=== PATIENT | female | born 1965 | race Caucasian/White ===

== ENCOUNTER 2016-12-04 13:40 | Emergency (ER) | payer BC ==
[2016-12-04 13:48] VITALS: BP 134/77
--- NOTE | 2016-12-04 13:50 | UC ---
Upper Extremity HPI - HPI Summary HPI Summary: Last night was chasing dog and fell into tree, catching self with R wrist. Since then has had pain and swelling, mainly with R wrist use and twisting motion. No pain in shoulder or elbow, denies prior surgeries in R wrist. - History of Current Complaint Stated Complaint: WRIST INJURY Time Seen by Provider: 12/04/16 13:43 Hx Obtained From: Patient ?: No Onset/Duration: Sudden Onset Severity Initially: Mild Severity Currently: Moderate Character: Dull Aggravating Factor(s): Movement, Internal/External Rotation Alleviating Factor(s): Rest Associated Signs And Symptoms: Positive: Swelling Related History: Dominant Hand Right - Allergies/Home Medications Allergies/Adverse Reactions: Allergies Allergy/AdvReac Type Severity Reaction Status Date / Time Oxycodone Allergy Severe Rash Verified 12/04/16 13:48 CT DYE Allergy Severe Wheezing Uncoded 12/04/16 13:48 PMH/Surg Hx/FS Hx/Imm Hx Cardiovascular History: Hypertension, Bleeding Disorders - factor V Other Cardiovascular History: Long QT syndrome - Surgical History Surgical History: Yes Surgery Procedure, Year, and Place: HYSTERECTOMY 2009, TONSILLECTOMY, LEFT LEG HEMATOMA REMOVED, OVARIAN ABLATION - Family History Known Family History: Positive: Hypertension, Blood Disorder - DVTs - Social History Lives: With Family Alcohol Use: Occasionally Substance Use Type: None Review of Systems Constitutional: Negative Skin: Negative Eyes: Negative ENT: Negative Respiratory: Negative Cardiovascular: Negative Gastrointestinal: Negative Genitourinary: Negative Motor: Negative Neurovascular: Negative Musculoskeletal: Arthralgia, Decreased ROM Neurological: Negative Psychological: Negative All Other Systems Reviewed And Are Negative: Yes Physical Exam Triage Information Reviewed: Yes Appearance: Well-Appearing, No Pain Distress, Obese Vital Signs Reviewed: Yes Eye Exam: Normal, Other - PERRL Eyes: Positive: Conjunctiva Clear ENT Exam: Normal ENT: Positive: Normal ENT inspection, Hearing grossly normal, Pharynx normal, TMs normal Dental Exam: Normal Neck exam: Normal Neck: Positive: Supple, Nontender, No Lymphadenopathy Respiratory Exam: Normal Respiratory: Positive: Chest non-tender, Lungs clear, Normal breath sounds, No respiratory distress, No accessory muscle use Cardiovascular Exam: Normal Cardiovascular: Positive: RRR, No Murmur Musculoskeletal Exam: Other - No snuff box or radial tenderness in R wrist Musculoskeletal: Positive: Strength Limited @ - R wrist, ROM Limited @ - R wrist Neurological Exam: Normal Neurological: Positive: Alert Psychological Exam: Normal Skin Exam: Normal Upper Extremity Course/Dx - Differential Dx/Diagnosis Provider Diagnoses: Suspect closed, nondisplaced fracture of R pisiform and/or triquetral Discharge - Discharge Plan Condition: Stable Disposition: INTERMEDIATE CARE FACILITY Patient Education Materials: Wrist Fracture in Adults (ED) Referrals: Lisbeth Ho MD [Medical Doctor] - 1 Week Additional Instructions: Use ice and elevation to help with pain; you can also take naproxen or ibuprofen as needed. Though your x-ray was read as normal, I suspect you still have a bony injury on that side of your wrist because of your pain and swelling. Keep the splint on all the time until seen by the orthopedist. You may remove it for bathing ONLY if you have a shower chair or other safe way to bathe seated.
--- NOTE | 2016-12-04 14:09 | RAD ---
INDICATION: Right wrist injury. TECHNIQUE: 3 views of the right wrist were obtained. FINDINGS: The bones are in normal alignment. No fracture is seen. Joint spaces appear maintained. IMPRESSION: NO EVIDENCE FOR FRACTURE.
== END 2016-12-04 14:28 ==
LOC: UCEAST 13:40
DX: S62.164A Nondisplaced fracture of pisiform, right wrist, initial encounter for closed fracture (principal); S62.114A Nondisplaced fracture of triquetrum [cuneiform] bone, right wrist, initial encounter for closed fracture; W01.0XXA Fall on same level from slipping, tripping and stumbling without subsequent striking against object, initial encounter; Z88.5 Allergy status to narcotic agent; Z91.041 Radiographic dye allergy status; I10 Essential (primary) hypertension; D68.51 Activated protein C resistance; I45.81 Long QT syndrome
CPT/HCPCS: 99212; G0463

== ENCOUNTER 2017-07-14 09:43 | Emergency (ER) | payer BC ==
[2017-07-14 09:51] VITALS: BP 134/82
--- NOTE | 2017-07-14 10:19 | UC ---
FLU HPI - HPI Summary HPI Summary: Pt presents with body aches, fatigue, and dry cough for the last 2 days. She tells me that last weekend she was at a wedding with her family - yesterday her sister called her told her that she has the flu and to be checked. Pt has not been taking anything OTC. She tells me that she has a history of long QT and is always cautious when taking medications. Denies fever, chills, SOB, chest pain, abdominal pain, n/v/d/c. - History of Current Complaint Chief Complaint: UCRespiratory Stated Complaint: COUGH, AND CHEST CONGESTION Time Seen by Provider: 07/14/17 10:17 Hx Obtained From: Patient Onset/Duration: Gradual Onset Severity Currently: Mild Severity Initially: Mild Pain Intensity: 2 Pain Scale Used: 0-10 Numeric - Allergy/Home Medications Allergies/Adverse Reactions: Allergies Allergy/AdvReac Type Severity Reaction Status Date / Time Iodine and Iodide Containing Allergy Hives Verified 07/14/17 09:47 Produc oxycodone Allergy Rash Verified 07/14/17 09:47 PMH/Surg Hx/FS Hx/Imm Hx - Additional Past Medical History Additional PMH: Long QT Factor 5 - Surgical History Surgical History: Yes Surgery Procedure, Year, and Place: HYSTERECTOMY 2009,. TONSILLECTOMY,. LEFT LEG HEMATOMA REMOVED,. OVARIAN ABLATION, - Family History Known Family History: Positive: Hypertension, Blood Disorder - DVTs - Social History Occupation: Employed Full-time Lives: With Family Alcohol Use: Occasionally Substance Use Type: None Smoking Status (MU): Never Smoked Tobacco Review of Systems Constitutional: Fatigue, Other - Body aches Skin: Negative Eyes: Negative ENT: Negative Respiratory: Cough Cardiovascular: Negative Gastrointestinal: Negative Neurovascular: Negative Neurological: Negative Psychological: Negative All Other Systems Reviewed And Are Negative: Yes Physical Exam - Summary Physical Exam Summary: GENERAL: NAD. WDWN. No pain distress. SKIN: No rashes, sores, ulcers, masses, lesions. HEENT: Head: AT/NC Eyes: Conjunctiva clear without inflammation or discharge. Ears: Hearing grossly normal. TMs intact, no bulging, erythema, or edema. Nose: Nasal mucosa pink and moist. NTTP maxillary and frontal sinus. Throat: Posterior oropharynx without exudates, erythema, or tonsillar enlargement. Uvula midline. NECK: Supple. Nontender. No lymphadenopathy. CHEST: CTAB. No r/r/w. No accessory muscle use. Breathing comfortably and in no distress. CV: RRR. Without m/r/g. Pulses intact. Brisk cap refill. NEURO: Alert. CN II-XII grossly intact. PSYCH: Age appropriate behavior. Triage Information Reviewed: Yes Vital Signs: Initial Vital Signs Temp 96.7 F 07/14/17 09:49 Pulse 67 07/14/17 09:49 Resp 16 07/14/17 09:49 BP 134/82 07/14/17 09:49 Pulse Ox 100 07/14/17 09:49 Flu Course/Dx - Course Course Of Treatment: POC flu negative. Pt is requesting antibiotic as she says her URI always "goes into her chest" and she doesn't want it to get worse. - Differential Dx/Diagnosis Provider Diagnoses: Bronchitis Discharge - Sign-Out/Discharge Documenting (check all that apply): Discharge - Discharge Plan Condition: Stable Disposition: HOME Prescriptions: Amoxicillin PO (*) [Amoxicillin 500 MG CAP*] 500 mg PO Q12H #20 cap Patient Education Materials: Acute Bronchitis (ED) Referrals: Feliciano Moran MD [Primary Care Provider] - Additional Instructions: If you develop a fever, shortness of breath, chest pain, new or worsening symptoms - please call your PCP or go to the ED. - Billing Disposition and Condition Condition: STABLE Disposition: HOME
== END 2017-07-14 10:33 | disposition home or self-care (01) ==
LOC: UCEAST 09:43
DX: J40 Bronchitis, not specified as acute or chronic (principal); Z88.5 Allergy status to narcotic agent
CPT/HCPCS: 87502; 99212; G0463

== ENCOUNTER 2017-11-08 17:49 | Emergency (ER) | payer BC ==
--- NOTE | 2017-11-08 19:09 | ED ---
Lower Extremity - HPI Summary HPI Summary: This is scribe Jayyev Benedict documenting for attending Dr. Rodrigo Fox MD. A 52 y/o female presents to ED c/o right calf pain now radiating to behind the knee. Additionally c/o slight swelling in foot and toe area. Currently, besides the chief complaint, she is otherwise feeling fine. According to the patient, for the past four days she has been experiencing calf pain reaching 4/10 in severity. Today the pain is radiating to behind the knee and some pain in the front. It has become worse to the point where using the stairs and straightening out her leg is difficult. She denies any previous injury. Additionally denies any CP, SOB and abdominal pain, however, has been running a low-grade fever. PMHx of hysterectomy, HBP, Long QT. FHx of Factor V. Current medications are for her HBP and Long QT. Pt will be leaving for [place] on November 14 2017. - History of Current Complaint Chief Complaint: EDExtremityLower Stated Complaint: LEG PAIN Time Seen by Provider: 11/08/17 18:59 Hx Obtained From: Patient Mechanism Of Injury: Unknown Onset/Duration: Days - 4 days Severity Initially: Moderate Severity Currently: Moderate Pain Intensity: 4 Pain Scale Used: 0-10 Numeric Timing: Constant Location: Is Diffuse - Right calf that radiates to behind the knee Associated Signs And Symptoms: Positive: Swelling, Fever - Low-grade. Negative : Abdominal Pain Aggravating Factor(s): Movement - Movement up the stairs Alleviating Factor(s): Nothing Able to Bear Weight: Yes - Allergies/Home Medications Allergies/Adverse Reactions: Allergies Allergy/AdvReac Type Severity Reaction Status Date / Time Iodine and Iodide Containing Allergy Hives Verified 11/08/17 17:59 Produc oxycodone Allergy Rash Verified 11/08/17 17:59 PMH/Surg Hx/FS Hx/Imm Hx Endocrine/Hematology History: Denies: Hx Diabetes Cardiovascular History: Reports: Hx Hypertension Denies: Hx Pacemaker/ICD Respiratory History: Denies: Hx Asthma History: Denies: Hx Renal Disease Musculoskeletal History: Denies: Hx Scoliosis Sensory History: Denies: Hx Hearing Aid Neurological History: Denies: Hx Headaches, Other Neuro Impairments/Disorders Psychiatric History: Reports: Hx Panic Disorder - Cancer History Hx Chemotherapy: No Hx Radiation Therapy: No - Surgical History Surgery Procedure, Year, and Place: HYSTERECTOMY 2009,. TONSILLECTOMY,. LEFT LEG HEMATOMA REMOVED,. OVARIAN ABLATION, Infectious Disease History: No Infectious Disease History: Denies: Traveled Outside the [place] in Last 30 Days - Family History Known Family History: Positive: Hypertension, Blood Disorder - DVTs - Social History Alcohol Use: Occasionally Substance Use Type: Reports: None Smoking Status (MU): Never Smoked Tobacco Review of Systems Positive: Fever - Low-grade Negative: Chest Pain Negative: Shortness Of Breath Negative: Abdominal Pain Positive: Other - POSITIVE: right calf pain radiating to behind the knee Positive: Other - POSITIVE: swelling in toe and foot area. All Other Systems Reviewed And Are Negative: Yes Physical Exam - Summary Physical Exam Summary: Appearance: Well-appearing, Well-nourished, lying in bed comfortably Skin: Warm, dry, no obvious rash. Mild swelling in foot and ankle. No warmth, no erythema, no tenderness. Eyes: sclera anicteric, no conjunctival pallor ENT: mucous membranes moist, pharynx appears normal Neck: Supple, nontender Respiratory: Clear to auscultation, no signs of respiratory distress Cardiovascular: Normal S1, S2. No murmurs. Normal distal pulses in tibial and radial bilaterally. Abdomen: Soft, nontender, normal active bowel sounds present Musculoskeletal: Normal, Strength/ROM Intact. No calf tenderness. No tenderness in the popliteal fossa. Neurological: A&Ox3, awake and alert, mentation is normal, speech is fluent and appropriate Psychiatric: affect is normal, does not appear anxious or depressed Triage Information Reviewed: Yes Vital Signs On Initial Exam: Initial Vitals Temp Pulse Resp BP Pulse Ox 100.1 F 79 20 153/86 100 11/08/17 17:55 11/08/17 17:55 11/08/17 17:55 11/08/17 17:55 11/08/17 17:55 Vital Signs Reviewed: Yes Diagnostics - Vital Signs Vital Signs Temp Pulse Resp BP Pulse Ox 11/08/17 17:55 100.1 F 79 20 153/86 100 - Laboratory Lab Statement: Any lab studies that have been ordered have been reviewed, and results considered in the medical decision making process. - Ultrasound No standard instances Ultrasound Interpretation Completed By: ED Physician - VENOUS DOPPLER: Negative. Re-Evaluation - Re-Evaluation First Eval Re-Evaluation Time: 20:15 Comment: Negative US. Discussed discharge with patient. Lower Extremity Course/Dx - Diagnoses Differential Diagnosis/HQI/PQRI: Positive: DVT, Infection, Strain, Tenosynovitis Provider Diagnoses: Leg pain Discharge - Sign-Out/Discharge Documenting (check all that apply): Patient Departure - DISCHARGE - Discharge Plan Condition: Good Disposition: HOME Patient Education Materials: Leg Pain (ED) Referrals: Feliciano Moran MD [Primary Care Provider] - Additional Instructions: If your symptoms have resolved (or nearly so) by Sunday, I think you should be good to go on your trip. If your pain has not improved at all, you should have a repeat ultrasound test before you leave. Occasionally a small clot is missed on the first US. - Billing Disposition and Condition Condition: GOOD Disposition: Home
--- NOTE | 2017-11-08 19:59 | RAD ---
INDICATION: Right lower extremity swelling. COMPARISON: There are no prior studies available for comparison. TECHNIQUE: Multiple real-time, color flow and Doppler tracings of the right lower extremity were obtained. FINDINGS: The common femoral, femoral, profunda femoral and popliteal veins all demonstrate normal compressibility, augmentation with compression and phasic response with respiration. The posterior tibial and peroneal veins demonstrate normal compressibility and augmentation with compression. IMPRESSION: NO EVIDENCE FOR DEEP VENOUS THROMBOSIS.
[2017-11-08 21:11] VITALS: BP 146/78
== END 2017-11-08 20:35 | disposition home or self-care (01) ==
LOC: ED 17:49
DX: M79.604 Pain in right leg (principal); I10 Essential (primary) hypertension
CPT/HCPCS: 99282

== ENCOUNTER 2018-06-17 19:05 | Emergency (ER) | payer BC ==
[2018-06-17 19:30] VITALS: BP 151/94
--- NOTE | 2018-06-17 20:29 | UC ---
Respiratory Complaint HPI - HPI Summary HPI Summary: 53-year-old woman who 53-year-old woman comes in with a chief complaint of cough chest congestion and wheezing. It has been going on for about 4 days. She started with a fever yesterday. Been having sputum production. In the past patient's had bronchitis and she has bronchospasm associated with it. She has QT prolongation syndrome and therefore she has to avoid albuterol. She does have some rhinorrhea also. Laying down seems to make the symptoms worse. - History of Current Complaint Chief Complaint: UCRespiratory Stated Complaint: ASTHMA SYMPTOMS Time Seen by Provider: 06/17/18 20:20 Pain Intensity: 0 - Allergies/Home Medications Allergies/Adverse Reactions: Allergies Allergy/AdvReac Type Severity Reaction Status Date / Time Iodine and Iodide Containing Allergy Hives Verified 06/17/18 19:30 Produc oxycodone Allergy Rash Verified 06/17/18 19:30 Home Medications: Home Medications Guaifenesin/Dextromethorphan [Guaifenesin Dm 400-20 mg Tab] 1 tab PO Q6HR [History Confirmed 06/17/18] PMH/Surg Hx/FS Hx/Imm Hx Previously Healthy: Yes - PROLONGED QT Cardiovascular History: Hypertension - Surgical History Surgical History: Yes Surgery Procedure, Year, and Place: HYSTERECTOMY 2009,. TONSILLECTOMY,. LEFT LEG HEMATOMA REMOVED,. OVARIAN ABLATION, - Family History Known Family History: Positive: Hypertension, Blood Disorder - DVTs - Social History Alcohol Use: Occasionally Substance Use Type: None Smoking Status (MU): Never Smoked Tobacco Review of Systems All Other Systems Reviewed And Are Negative: Yes Constitutional: Positive: Negative Skin: Positive: Negative Eyes: Positive: Negative ENT: Positive: Nasal Discharge, Sinus Congestion Respiratory: Positive: Shortness Of Breath, Cough, Other - WHEEZING Cardiovascular: Positive: Negative Gastrointestinal: Positive: Negative Motor: Positive: Negative Neurovascular: Positive: Negative Musculoskeletal: Positive: Negative Neurological: Positive: Negative Psychological: Positive: Negative Is Patient Immunocompromised?: No Physical Exam Triage Information Reviewed: Yes Appearance: No Pain Distress, Well-Nourished, Ill-Appearing - MILD Vital Signs: Initial Vital Signs Temp 98.9 F 06/17/18 19:25 Pulse 82 06/17/18 19:25 Resp 16 06/17/18 19:25 BP 151/94 06/17/18 19:25 Pulse Ox 96 06/17/18 19:25 Vital Signs Reviewed: Yes Eye Exam: Normal Eyes: Positive: Conjunctiva Clear ENT: Positive: Pharyngeal erythema, Nasal congestion, Nasal drainage, TMs normal Neck exam: Normal Neck: Positive: Supple Respiratory: Positive: No respiratory distress, Rhonchi, Wheezing Cardiovascular: Positive: RRR Neurological Exam: Normal Neurological: Positive: Alert Psychological Exam: Normal Psychological: Positive: Normal Response To Family, Age Appropriate Behavior Skin Exam: Normal Respiratory Course/Dx - Course Course Of Treatment: THE PATIENT WISHES TO BE ON ANTIBIOTICS AT THIS TIME. - Differential Dx/Diagnosis Provider Diagnosis: Bronchitis with bronchospasm Discharge - Sign-Out/Discharge Documenting (check all that apply): Patient Departure All imaging exams completed and their final reports reviewed: No Studies - Discharge Plan Condition: Stable Disposition: HOME Prescriptions: Cefdinir [Cefdinir 300 MG CAP] 300 mg PO BID #20 cap predniSONE TAB* [Deltasone 20 MG TAB*] 40 mg PO DAILY #10 tab Patient Education Materials: Acute Bronchitis (ED), Bronchospasm (ED) Referrals: Feliciano Moran MD [Primary Care Provider] - Additional Instructions: FOLLOW UP WITH YOUR DOCTOR IF NOT COMPLETELY IMPROVED. GET RECHECKED FOR ANY WORSENING OF YOUR CONDITION OR QUESTIONS OR CONCERNS. - Billing Disposition and Condition Condition: STABLE Disposition: Home
== END 2018-06-17 20:40 | disposition home or self-care (01) ==
LOC: UCEAST 19:05
DX: J20.9 Acute bronchitis, unspecified (principal); I45.81 Long QT syndrome; Z88.5 Allergy status to narcotic agent; I10 Essential (primary) hypertension
CPT/HCPCS: 99212; G0463

== ENCOUNTER 2019-01-07 20:10 | Emergency (ER) | payer BC ==
--- NOTE | 2019-01-08 00:01 | ED ---
Hypertension - HPI Summary HPI Summary: 53 year old F presenting [place] [facility] by family members complains of hypertension since this afternoon. Patient states that she checked her blood pressure twice before coming to the ED which were 153/90 and 161/90. Patient states she has chest fluttering, and now has a frontal headache. Denies tingliness/numbness in her hands or feet. Symptoms aggravated by nothing. Symptoms alleviated by nothing. Patient states she was seen by her primary care provider today for annual physical exam at which she received the influenza vaccination. Patient states she has never had a reaction to the influenza vaccination. 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 Patient denies associated shortness of breath, cough, n/v/d with these episodes of dizziness. Patient states she doesn't have dizziness now. Patient has never had these episodes of dizziness before. Patient states that years ago, patient had Lyme disease and Bailon's Palsy, and she gets occasional left-sided facial numbness. Patient states that today, she had left-sided facial numbness which has now resolved. PMHX: long QT. Patient states she was recently put on hydrochlorizide 1 month ago to reduce the swelling in her lower extremities. Has cardiac Fhx. Patient states she drinks wine occasionally but none today. Denies drugs, smoking. - History of Current Complaint Chief Complaint: EDHypertension Stated Complaint: HIGH BLOOD PRESSURE PER PT Time Seen by Provider: 01/07/19 23:48 Hx Obtained From: Patient Onset/Duration: Started Hours Ago, Still Present Timing: Constant Aggravating Factor(s): Nothing Alleviating Factor(s): Nothing - Allergies/Home Medications Allergies/Adverse Reactions: Allergies Allergy/AdvReac Type Severity Reaction Status Date / Time Iodine and Iodide Containing Allergy Hives Verified 06/17/18 19:30 Produc oxycodone Allergy Rash Verified 01/07/19 23:47 Home Medications: Home Medications Metoprolol Succinate 25 mg PO BEDTIME 01/07/19 [History Confirmed 01/07/19] PMH/Surg Hx/FS Hx/Imm Hx Endocrine/Hematology History: Denies: Hx Diabetes Cardiovascular History: Reports: Hx Hypertension Denies: Hx Pacemaker/ICD Respiratory History: Reports: Hx Asthma - one episode History: Denies: Hx Renal Disease Musculoskeletal History: Denies: Hx Scoliosis Sensory History: Reports: Hx Contacts or Glasses Denies: Hx Hearing Aid Opthamlomology History: Reports: Hx Contacts or Glasses Neurological History: Reports: Other Neuro Impairments/Disorders - Lyme disease and Bailon's Palsy Denies: Hx Headaches Psychiatric History: Denies: Hx Panic Disorder - Cancer History Hx Chemotherapy: No Hx Radiation Therapy: No - Surgical History Surgery Procedure, Year, and Place: HYSTERECTOMY 2009,. TONSILLECTOMY,. LEFT LEG HEMATOMA REMOVED,. OVARIAN ABLATION, Infectious Disease History: No Infectious Disease History: Denies: Traveled Outside the [place] in Last 30 Days - Family History Known Family History: Positive: Cardiac Disease, Hypertension, Blood Disorder - DVTs Family History: PACEMAKER - Social History Alcohol Use: Occasionally Hx Substance Use: No Substance Use Type: Reports: None Hx Tobacco Use: No Smoking Status (MU): Never Smoked Tobacco Review of Systems - ROS Summary Review of Systems Summary: Home Medications Medication Instructions Recorded Confirmed Type Aspirin TAB* [Aspirin 325 MG TAB*] 325 mg PO DAILY 06/02/13 01/07/19 History Ibuprofen TAB* [Advil TAB*] 400 mg PO Q6H PRN 06/02/13 01/07/19 History Lisinopril TAB* [Prinivil TAB 5 5 mg PO DAILY 06/02/13 01/07/19 History MG*] cloNIDine TAB* [Catapres 0.1 MG 0.1 mg PO DAILY 06/02/13 01/07/19 History TAB*] Cyclobenzaprine TAB* [Flexeril 10 10 mg PO TID PRN 11/08/17 01/07/19 History MG TAB*] Metoprolol Succinate XL TAB* 50 mg PO QAM 11/08/17 01/07/19 History [Toprol XL TAB*] Guaifenesin/Dextromethorphan 1 tab PO Q6HR 06/17/18 01/07/19 History [Guaifenesin Dm 400-20 mg Tab] Metoprolol Succinate 25 mg PO BEDTIME 01/07/19 01/07/19 History Positive: Other - hypertension, chest fluttering Negative: Shortness Of Breath, Cough Negative: Vomiting, Diarrhea, Nausea Neurological: Negative - tingliness/numbness in her hands or feet, Other - Dizziness Positive: Headache, Numbness - left-sided facial All Other Systems Reviewed And Are Negative: Yes Physical Exam - Summary Physical Exam Summary: General: Morbidly obese FEMALE who is mildly anxious-appearing HEENT: Normocephalic, Atraumatic. Eyes: Conjuctiva normal, PERRL. Ears: TMs within normal limits. Nares: (-) discharge, (-) erythema. Oropharynx: Clear, mucous membranes moist, (-) exudates. Neck: Soft, FROM, (-) lymphadenopathy, (-) thyromegaly, (-) JVD. Cardiovascular: Normal sinus rhythm, (-) murmur. Lungs: Clear to auscultation bilaterally (-) wheezes, (-) rales, (-) rhonchi. Abdomen: Soft, non-tender, non-distended, (-) organomegaly, normal bowel sounds. Back: (-) CVA tenderness Extremities: Trace edema in lower extremities Skin: Warm, dry, (-) rash. Neuro: Alert and oriented x3, no focal deficits. Psychiatric: Mood normal, affect normal. GCS: 15 Triage Information Reviewed: Yes Vital Signs On Initial Exam: Initial Vitals Temp Pulse Resp BP Pulse Ox 96.9 F 67 18 184/91 98 01/07/19 20:12 01/07/19 20:12 01/07/19 20:12 01/07/19 20:12 01/07/19 20:12 Vital Signs Reviewed: Yes Diagnostics - Vital Signs Vital Signs Temp Pulse Resp BP Pulse Ox 01/07/19 22:15 97.9 F 74 18 159/99 98 01/07/19 20:12 96.9 F 67 18 184/91 98 - Laboratory Result Diagrams: 01/08/19 00:13 01/08/19 00:13 Lab Statement: Any lab studies that have been ordered have been reviewed, and results considered in the medical decision making process. - CT Brain CT Interpretation Completed By: Radiologist Summary of CT Findings: No acute intracranial findings. ED physician has reviewed this report. - EKG 22:19 Cardiac Rate: NL - 68 BPM EKG Rhythm: Sinus Rhythm Summary of EKG Findings: EKG at 22:19 reveals normal sinus rhythm with rate of 68 BPM, no acute changes, no ischemic changes. This EKG was reviewed and interpreted by Dr. Perez. Re-Evaluation - Re-Evaluation First Eval Re-Evaluation Time: 01:51 Change: Improved Comment: I have discussed results with the patient and her symptoms have resolved. Discussed symptoms that warrant immediate return to ED. Hypertension Course/Dx - Course Course Of Treatment: 53 year old F presenting to [facility] accompanied by family members complains of hypertension since this afternoon. Patient states that she checked her blood pressure twice before coming to the ED which were 153/90 and 161/90. Patient states she has chest fluttering, and now has a frontal headache. Denies tingliness/numbness in her hands or feet. Symptoms aggravated by nothing. Symptoms alleviated by nothing. Patient states she was seen by her primary care provider today for annual physical exam at which she received the influenza vaccination. Patient states she has never had a reaction to the influenza vaccination. 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 Patient denies associated shortness of breath, cough, n/v/d with these episodes of dizziness. Patient states she doesn't have dizziness now. Patient has never had these episodes of dizziness before. Patient states that years ago, patient had Lyme disease and Bailon's Palsy, and she gets occasional left-sided facial numbness. Patient states that today, she had left-sided facial numbness which has now resolved. PMHX: long QT. Patient states she was recently put on hydrochlorizide 1 month ago to reduce the swelling in her lower extremities. Has cardiac Fhx. Patient states she drinks wine occasionally but none today. Denies drugs, smoking. Physical exam findings: a morbidly obese female who is mildly anxious appearing and has trace edema in lower extremities. EKG at 22: 19 reveals normal sinus rhythm with rate of 68 BPM, no acute changes, no ischemic changes. This EKG was reviewed and interpreted by Dr. Perez. CT Brain shows, per radiologist: No acute intracranial findings. Bloodwork results with no significant abnormalities except for MCH 32, chloride 100, BUN/ creatinine 26.3, glucose 114, AST 59, ALT 123. In the ED course, the patient took her evening dose of medications. The patient feels better and would like to go home. Patient will be discharged home with follow up her primary care provider. Patient was instructed to return to Emergency Department for new or worsening symptoms. Patient understands and is agreeable to this plan. - Diagnoses Provider Diagnoses: Dizziness, Hypertension Discharge ED - Sign-Out/Discharge Documenting (check all that apply): Patient Departure - Discharge Patient Received Moderate/Deep Sedation with Procedure: No - Discharge Plan Condition: Stable Disposition: HOME Patient Education Materials: Hypertension (ED), Dizziness (ED) Referrals: Feliciano Moran MD [Primary Care Provider] - 3 Days Additional Instructions: Please follow up with your primary care physician within 3 days. Please return to Emergency Department for any new or worsening symptoms. - Billing Disposition and Condition Condition: STABLE Disposition: Home - Attestation Statements Document Initiated by Scribe: Yes Documenting Scribe: Aniyah May Provider For Whom Yuee is Documenting (Include Credential): Monica Perez MD Scribe Attestation: I, Aniyah May, scribed for Monica Perez MD on 01/08/19 at 0509. Scribe Documentation Reviewed: Yes Provider Attestation: The documentation as recorded by the Aniyah jeff accurately reflects the service I personally performed and the decisions made by me, Monica Perez MD Status of Scribe Document: Viewed
[2019-01-08 00:24] LABS: ABS Basophils 0.1 10^3/ul (0-0.2); ABS Eosinophils 0.2 10^3/ul (0-0.6); ABS Lymphocytes 2.4 10^3/ul (1.0-4.8); ABS Monocytes 0.7 10^3/ul (0-0.8); ABS Neutrophils 3.4 10^3/ul (1.5-7.7); Eosinophil % 2.7 %; Hematocrit 40 % (35-47); Hemoglobin 13.5 g/dL (12.0-16.0); Lymphocyte % 35.6 %; Mean Corpuscular HGB Conc 34 g/dL (31-36); Mean Corpuscular Hemoglobin 32 pg (27-31); Mean Corpuscular Volume 94 fL (80-97); Mean Platelet Volume 7.4 fL (7.4-10.4); Platelet Count 238 10^3/uL (150-450); Red Blood Count 4.21 10^6 /uL (3.70-4.87); Red Cell Distribution Width 13 % (10-15); White Blood Count 6.6 10^3/uL (3.5-10.8)
[2019-01-08 00:39] LABS: INR 1.04 (0.82-1.09)
[2019-01-08 00:43] LABS: Albumin/Globulin Ratio 1.4 (1-3); BUN/Creatinine Ratio 26.3 (8-20); Calcium 9.4 mg/dL (8.6-10.3); EGFR African American 90.1 (>60); EGFR Non-African American 74.5 (>60); Globulin 2.8 g/dL (2-4); Potassium 3.7 mmol/L (3.5-5.0); Total Bilirubin 0.8 mg/dL (0.2-1.0); Total Protein 6.8 g/dL (6.4-8.9)
[2019-01-08 02:06] VITALS: BP 136/70
== END 2019-01-08 02:09 | disposition home or self-care (01) ==
LOC: ED 20:10
DX: I10 Essential (primary) hypertension (principal); J45.909 Unspecified asthma, uncomplicated; Z90.710 Acquired absence of both cervix and uterus; Z79.82 Long term (current) use of aspirin; Z79.899 Other long term (current) drug therapy; Z88.5 Allergy status to narcotic agent; Z91.041 Radiographic dye allergy status
CPT/HCPCS: 36415; 70450; 80053; 83605; 84484; 85025; 85610; 93005; 99283